=== PATIENT | male | born 1980 | race Caucasian/White ===

== ENCOUNTER 2017-11-16 12:28 | Emergency (ER) | payer BC ==
[~2017-11-16] VITALS: Ht 172.7 cm; Wt 91.6 kg
[2017-11-16 12:31] VITALS: BP 137/71; Ht 172.7 cm; Wt 91.6 kg
== END 2017-11-16 14:53 | disposition home or self-care (01) ==
LOC: ED 12:28
DX: M79.662 Pain in left lower leg (principal)